=== PATIENT | male | born 1950 | race Caucasian/White ===

== ENCOUNTER → 2019-05-13 | Day surgery (SDC) | payer OTHER ==
[2019-05-07 10:31] LABS: BASOPHILS % 0.4 % (0.0-1.0); EOSINOPHILS # (AUTO) 0.1 (0.0-0.4); EOSINOPHILS % 1.5 % (0.0-6.0); HEMATOCRIT 41.3 % (38.2-49.6); HEMOGLOBIN 12.4 g/dL (14.0-18.0); LYMPHOCYTES # (AUTO) 1.4 (1.0-3.2); MEAN CORPUSCULAR HEMOGLOBIN 22.3 pg (28-32); MEAN CORPUSCULAR VOLUME 74.3 fL (81-99); MONOCYTES # (AUTO) 0.6 (0.2-0.8); MONOCYTES % 8.2 % (4.4-11.3); NEUTROPHILS # (AUTO) 5.4 (2.1-6.9); NEUTROPHILS % 70.5 % (38.7-80.0); PLATELET COUNT 233 x10e3/uL (140-360); RED BLOOD COUNT 5.56 x10e6/uL (4.3-5.7); RED CELL DISTRIBUTION WIDTH 18.2 % (11.7-14.4)
[~2019-05-13] MED LIST: B-12500 MCG; FERROUS SULFAT324 MG PO; LIDOCAINE HCL 2% LOCAL INJ 5 ML SDV VIAL INJ ONE; MIDAZOLAM HCL 2 MG/2 ML VIAL ONE; PROPOFOL IV EMULSION 10 MG/ML 50 ML VIAL ONE; VITAMIN B COMP1 EACH PO; XARELTO10 MG PO; [UNRECOGNIZED DRUG - OTHER] IM
[2019-05-13 10:45] VITALS: BP 143/84
== END | disposition home or self-care (01) ==
LOC: OR 06:38
PROVIDERS: ATTEND Internal Medicine Gastroenterology
DX: D50.0 Iron deficiency anemia secondary to blood loss (chronic) (principal); K29.50 Unspecified chronic gastritis without bleeding; K31.89 Other diseases of stomach and duodenum; Z71.3 Dietary counseling and surveillance; E66.9 Obesity, unspecified; Z98.84 Bariatric surgery status; G47.33 Obstructive sleep apnea (adult) (pediatric); I49.5 Sick sinus syndrome; I48.91 Unspecified atrial fibrillation; K64.8 Other hemorrhoids; Z01.810 Encounter for preprocedural cardiovascular examination; Z01.812 Encounter for preprocedural laboratory examination; Z79.02 Long term (current) use of antithrombotics/antiplatelets; Z95.0 Presence of cardiac pacemaker; Z68.33 Body mass index [BMI] 33.0-33.9, adult
CPT/HCPCS: 36415; 43239; 45378; 85025; 93005; J2001; J2250; J2704